=== PATIENT | male | born 1970 | race Two or more races ===

== ENCOUNTER → 2025-06-11 | Outpatient (CLI) | payer BC, SELFPAY ==
--- NOTE | 2025-06-11 10:00 | XR_ITS ---
EXAMINATION: Upper GI series with KUB Esophagram standard 27 spot fluoroscopic films of the esophagus and stomach Fluoroscopy Date and time: June 11, 2025, 10:32 a.m. INDICATIONS: Heartburn bloating abdominal disc comfort post eating 3 months FINDINGS: Patient swallowed thin barium with 27 spot fluoroscopic films of the esophagus and stomach Primary peristaltic esophageal waves Mild intermittent gastroesophageal reflux No constricting esophageal lesion Peristalsis versus stomach normally No gastric mass deformity or ulceration Duodenal sweep and small bowel visualized unremarkable IMPRESSION: Mild intermittent gastroesophageal reflux No stricture at the gastroesophageal junction
== END | disposition home or self-care (01) ==
PROVIDERS: PCP Family Medicine; Referring Provider Family Medicine; Visit Provider Family Medicine
DX: K21.9 Gastro-esophageal reflux disease without esophagitis (principal)
CPT/HCPCS: 74240; Q9963